=== PATIENT | female | born 1980 | race Caucasian/White ===

== ENCOUNTER 2018-05-04 11:16 | Observation (INO) ==
--- NOTE | 2018-05-05 00:35 | P.HPIM ---
History of Present Illness Service: [facility] Primary Care Physician: No Primary Care Physician Chief Complaint: nausea History of Present Illness: 37 y/o female with no medical history presented to the ED to the with complaints of vomiting and diarrhea today. Patient states she has been vomiting since this morning with one episode of diarrhea. Upon examination she is coughing and vomiting after. She states she has been having fevers and chills at home, unknown temperature. Denies any chest pain, or sob. Review of Systems All other systems reviewed negative except as stated in [facility] PMF[facility] - History History Provided By: Patient - Medical History Medical History: Medical History (Last Reviewed 05/05/18 @ 01:19 by DEBBY Chavarria) Patient denies medical problems - Surgical History Surgical History: Surgical History (Last Reviewed 05/05/18 @ 01:19 by DEBBY Chavarria) Hx of section Hx of tubal ligation - Social History I have reviewed the patient's Social History: Yes - Tobacco History Second Hand Smoke Exposure: Yes Tobacco Use In Past 30 Days: Yes Smoking Status: Current every day smoker Tobacco Type: Cigarettes Packs Per Day: 0.5 - Alcohol History How Often Do You Have a Drink Containing Alcohol: Never - Substance Use History Substance History: Active Abuse Medications and Allergies Allergies Allergy/AdvReac Type Severity Reaction Status Date / Time No Known Allergies Allergy Verified 05/04/18 12:11 Home Medications Medication Instructions Recorded Confirmed Type No Known Home Medications 05/04/18 05/04/18 History Exam Vital signs: Intake & Output 05/04/18 05/04/18 05/05/18 06:59 18:59 06:59 Weight 95.9 kg Other: Date of Last Bowel Movement 05/04/18 Weight On Admission 95.9 kg Narrative: GENERAL: This is a well-nourished, well-developed patient, in no apparent distress. CARDIOVASCULAR: Regular rate and rhythm without murmurs, gallops, or rubs. RESPIRATORY: Clear to auscultation. Breath sounds equal bilaterally. No wheezes , rales, or rhonchi. GASTROINTESTINAL: Abdomen soft, non-tender, nondistended. Normal active bowel sounds MUSCULOSKELETAL: Extremities without clubbing, cyanosis, or edema. NEURO: Alert & Oriented x4 to person, place, time, situation. Moves all ext x4 Caprini VTE Risk Assessment Caprini VTE Risk Assessment: No/Low Risk (score <= 1) Caprini Risk Assessment Model: Point Value = 1 Point Value = 2 Point Value = 3 Point Value = 5 Age 41-60 Minor surgery BMI > 25 kg/m2 Swollen legs Varicose veins or History of unexplained or recurrent spontaneous Oral contraceptives or hormone replacement Sepsis (< 1 month) Serious lung disease, including pneumonia (< 1 month) Abnormal pulmonary function Acute myocardial infarction Congestive heart failure (< 1 month) History of inflammatory bowel disease Medical patient at bed rest Age 61-74 Arthroscopic surgery Major open surgery (> 45 min) Laparoscopic surgery (> 45 min) Malignancy Confined to bed (> 72 hours) Immobilizing plaster cast Central venous access Age >= 75 History of VTE Family history of VTE Factor V Leiden Prothrombin [id number] Lupus anticoagulant Anticardiolipin antibodies Elevated serum homocysteine Heparin-induced thrombocytopenia Other congenital or acquired thrombophilia Stroke (< 1 month) Elective arthroplasty Hip, pelvis, or leg fracture Acute spinal cord injury (< 1 month) Prophylaxis Regimen: Total Risk Factor Score Risk Level Prophylaxis Regimen 0-1 Low Early ambulation 2 Moderate Order ONE of the following: *Sequential Compression Device (SCD) *Heparin 5000 units SQ BID 3-4 Higher Order ONE of the following medications: *Heparin 5000 units SQ TID *Enoxaparin/Lovenox 40 mg SQ daily (WT < 150 kg, CrCl > 30 mL/min) *Enoxaparin/Lovenox 30 mg SQ daily (WT < 150 kg, CrCl > 10-29 mL/min) *Enoxaparin/Lovenox 30 mg SQ BID (WT < 150 kg, CrCl > 30 mL/min) AND/OR *Sequential Compression Device (SCD) 5 or more Highest Order ONE of the following medications: *Heparin 5000 units SQ TID (Preferred with Epidurals) *Enoxaparin/Lovenox 40 mg SQ daily (WT < 150 kg, CrCl > 30 mL/min) *Enoxaparin/Lovenox 30 mg SQ daily (WT < 150 kg, CrCl > 10-29 mL/min) *Enoxaparin/Lovenox 30 mg SQ BID (WT < 150 kg, CrCl > 30 mL/min) AND *Sequential Compression Device (SCD) Assessment and Plan - Plan Intractable Nausea and vomiting Abdominal CT no acute abnormalities a Small amount of fluid within the right hemipelvis without acute abnormality otherwise and Tiny bilateral nonobstructing renal calculi. Gallbladder US unremarkable -HIDA scan ordered -IVF, NPO -Reglan IV for N/V Leukocytosis, wbc 15, likely reactive -chest xray ordered -Trend CBC DVT prophylaxis: SCDs Discussed Condition With: Patient and RN
[2018-05-05] MEDS: Sod Chloride 0.9% Inj 1,000 ML IV.CONT SCH ×3 (03:23→20:10)
--- NOTE | 2018-05-05 06:24 | XR ---
EXAM DATE: 05/05/2018 12:00 AM EDT AGE/SEX: 37 years / Female INDICATIONS: Short of breath, epigastric and abdominal pain, vomiting, evaluate infiltrate CLINICAL DATA: This is the patient's subsequent encounter. Patient reports that signs and symptoms h ave been present for 2 days and indicates a pain score of Nonresponsive. MEDICAL/SURGICAL HISTORY: . vomiting section. Tubal ligation. COMPARISON: . FINDINGS: Portable AP view of the chest demonstrates a normal-sized cardiac silhouette. No effusion, consolidat ion, or pneumothorax is identified. The bones and soft tissues demonstrate no acute finding. CONCLUSION: No acute cardiopulmonary abnormality is identified. Electronically signed by: Bandar Mcdaniels MD 05/05/2018 6:22 AM EDT
--- NOTE | 2018-05-05 09:01 | P.PN ---
Subjective Interval history: This is a pleasant 37 y/o female with complaint of vomit and diarrhea, stable in her bedroom no nausea or vomit started on liquid diet, status post HIDA scan, no findings of acute cholecystitis, gallbladder identified at 20 minutes No significant gallbladder response to IV CCK administration. probable chronic cholecystitis. Physical Exam Vital signs: Vital Signs 05/05/18 00:00 05/05/18 08:00 Temperature 97.6 F 98.8 F Pulse Rate 78 72 Respiratory Rate 17 17 Blood Pressure 129/83 161/81 H Pulse Oximetry 92 L 93 L Intake & Output 05/04/18 05/05/18 05/05/18 18:59 06:59 18:59 Intake Total 50 / 50 Balance 50 / 50 Weight 94.5 kg Intake: Oral 50 / 50 Other: # Voids 1 Date of Last Bowel Movement 05/04/18 Weight On Admission 95.9 kg Narrative: GENERAL: Obese patient, well-developed patient, in no apparent distress. CARDIOVASCULAR: Regular rate and rhythm without murmurs, gallops, or rubs. RESPIRATORY: Clear to auscultation. Breath sounds equal bilaterally. No wheezes , rales, or rhonchi. GASTROINTESTINAL: Abdomen soft, non-tender, nondistended. Normal active bowel sounds MUSCULOSKELETAL: Extremities without clubbing, cyanosis, or edema. NEURO: Alert & Oriented x4 to person, place, time, situation. Moves all ext x4 Results - Labs CBC & Chem 7: 05/05/18 09:34 05/05/18 09:34 - Imaging Impressions Chest X-Ray 05/05/18 00:00 CONCLUSION: No acute cardiopulmonary abnormality is identified. Assessment and Plan - Plan Intractable Nausea and vomiting Abdominal CT no acute abnormalities a Small amount of fluid within the right hemipelvis without acute abnormality otherwise and Tiny bilateral nonobstructing renal calculi. Gallbladder US unremarkable -HIDA no findings of acute cholecystitis, gallbladder identified at 20 minutes No significant gallbladder response to IV CCK administration. probable chronic cholecystitis. Started by Liquid diet. Leukocytosis, wbc 15, worsened to 18.3, asked for urinalysis and the chest X ray was negative for pathology, Neutrophils 84. will start on Zosyn, Empiric management blood cultures performed now. DVT prophylaxis: SCDs Code Status: Full code. Discussed Condition With: patient and Nurse Miss Tsering Discharge Planning: Expected in one to two days.
[2018-05-05 10:05] LABS: Hemoglobin 13.6 gm/dL (11.6-15.3); Mean Corpuscular HGB Conc 33.2 % (32.0-36.0); Mean Corpuscular Hemoglobin 28.5 pg (27.0-34.0); Mean Corpuscular Volume 85.8 fL (80.0-100.0); Platelet Count 203 th/mm3 (150-450); Red Blood Count 4.78 mil/mm3 (4.00-5.30); Red Cell Distribution Width 15.8 % (11.6-17.2); White Blood Count 18.3 th/mm3 (4.0-11.0)
[2018-05-05 10:16] LABS: Anion Gap 9 meq/L (5-15); Blood Urea Nitrogen 10 mg/dL (7-18); Calcium 9.2 mg/dL (8.5-10.1); Chloride 105 meq/L (98-107); Glomerular Filtration Rate Greater Than 89 mL/min (>89); Glucose,Random 123 mg/dL (74-106); Potassium 3.3 meq/L (3.5-5.1); Sodium 139 meq/L (136-145)
[2018-05-05] MEDS ORDERED: Sincalide Inj 5 MCG Vial ONE (11:11)
--- NOTE | 2018-05-05 12:28 | NM ---
EXAM DATE: 05/05/2018 9:56 AM EDT AGE/SEX: 37 years / Female INDICATIONS: Vomiting. CLINICAL DATA: This is the patient's initial encounter. Patient reports that signs and symptoms have been present for 1 day and indicates a pain score of 3/10. MEDICAL/SURGICAL HISTORY: None. Tubal ligation. section. COMPARISON: No prior exams available for comparison. DOSE: 4.1 mCi Tc-99m mebrofenin i.v. Medication: 1.9 mcg Cholecystokinin IV No symptomatic response Cholecystokinin was administered by slow infusion over 8 minutes beginning at 60 minutes. minutes. TECHNIQUE: Following the intravenous administration of radiotracer, dynamic sequential images were pe rformed with continuous acquisition. Time-activity curves were generated. FINDINGS: Hepatic Kinetics: There is prompt uptake of radiotracer in the liver. No focal defects are seen. Ther e is normal rate of washout from the hepatic parenchyma. Biliary Clearance: Activity is first seen in the extrahepatic biliary system at 65 minutes. There is normal excretion into the small bowel. Gallbladder: Activity is first seen in the gallbladder at 20 minutes. Post-CCK: After CCK administration, there is no significant emptying of the gallbladder common bile d uct kinetics are normal and there is no evidence of biliary obstruction. No symptomatic response aft er cholecystokinin infusion. Biliary-Enteric Reflux: None observed. CONCLUSION: 1. No findings of an acute cholecystitis. Gallbladder is identified at 20 minutes. 2. No significant gallbladder response to IV CCK administration. In the appropriate clinical setting , findings could represent a chronic cholecystitis. Electronically signed by: Jarte Mtz MD 05/05/2018 12:26 PM EDT
[2018-05-05] MEDS ORDERED: cefTRIAXone Inj 1,000 MG Vial IM SCH (16:00)
[2018-05-05] MEDS ORDERED: Potassium Chloride 25 MEQ Effervescent Tablet PO ONE ×2 (16:00→18:00)
[2018-05-05] MEDS: Pantoprazole Inj 40 MG Vial IV.PUSH SCH (16:50)
[2018-05-05] MEDS: Sucralfate 1 GM Tablet PO SCH ×2 (16:50→20:09)
[2018-05-05] MEDS: Piperacil/Tazo 4.5 GM Premix 4.5 GM/100 ML BAG IV.SIG SCH ×2 (17:04→23:36)
[2018-05-06] MEDS: Piperacil/Tazo 4.5 GM Premix 4.5 GM/100 ML BAG IV.SIG SCH ×5 (04:29→23:17)
[2018-05-06] MEDS: Sod Chloride 0.9% Inj 1,000 ML IV.CONT SCH ×4 (06:24→21:03)
[2018-05-06] MEDS: Sucralfate 1 GM Tablet PO SCH ×5 (08:38→21:00)
[2018-05-06] MEDS: Morphine Sulfate Inj 2 MG/ML Vial IV.PUSH PRN ×3 (09:52→21:01)
[2018-05-06 10:05] LABS: Hematocrit 39.7 % (35.0-46.0); Hemoglobin 13.4 gm/dL (11.6-15.3); Mean Corpuscular HGB Conc 33.8 % (32.0-36.0); Mean Corpuscular Hemoglobin 28.7 pg (27.0-34.0); Mean Platelet Volume 10.8 fL (7.0-11.0); Platelet Count 181 th/mm3 (150-450); Red Blood Count 4.67 mil/mm3 (4.00-5.30); Red Cell Distribution Width 15.5 % (11.6-17.2); White Blood Count 13.4 th/mm3 (4.0-11.0)
[2018-05-06 10:26] LABS: Calcium 8.4 mg/dL (8.5-10.1); Carbon Dioxide 26.7 meq/L (21.0-32.0); Potassium 3.2 meq/L (3.5-5.1)
--- NOTE | 2018-05-06 11:37 | P.PN ---
Subjective Interval history: This is a pleasant 37 y/o female with complaint of vomit and diarrhea, stable in her bedroom no nausea or vomit started on liquid diet, status post HIDA scan, no findings of acute cholecystitis, gallbladder identified at 20 minutes No significant gallbladder response to IV CCK administration. probable chronic cholecystitis. 05/06: Stable in his bedroom, discussed with nurse Miss Cagle the patient is nauseated, vomiting and with abdominal pain, continue on PPIs and Carafate, asked for GI specialist consult, may need General Surgery consult. Physical Exam Vital signs: Vital Signs 05/05/18 15:58 05/05/18 20:00 05/06/18 00:00 Temperature 98.9 F 99.7 F H 98.7 F Pulse Rate 83 88 86 Respiratory Rate 18 17 17 Blood Pressure 160/80 H 124/76 120/69 Pulse Oximetry 94 L 93 L 92 L 05/06/18 08:00 Temperature 97.8 F Pulse Rate 70 Respiratory Rate 17 Blood Pressure 166/74 H Pulse Oximetry 93 L Intake & Output 05/05/18 05/06/18 05/06/18 18:59 06:59 18:59 Intake Total 100 / 100 800 / 800 Balance 100 / 100 800 / 800 Weight 94.5 kg Intake: IV 100 / 100 200 / 200 Zosyn 4.5 GM Premix 4.5 gm In 100 / 100 200 / 200 100 ml @ 200 mls/hr IV.SIG Q6H RUFINA Rx#:[id number] Oral 600 / 600 Other: # Voids 3 Date of Last Bowel Movement 05/04/18 Narrative: GENERAL: Obese patient, well-developed patient, in no apparent distress. CARDIOVASCULAR: Regular rate and rhythm without murmurs, gallops, or rubs. RESPIRATORY: Clear to auscultation. Breath sounds equal bilaterally. No wheezes , rales, or rhonchi. GASTROINTESTINAL: Abdomen soft, today with generalized tenderness but is worse on epigastric area and RUQ. MUSCULOSKELETAL: Extremities without clubbing, cyanosis, or edema. NEURO: Alert & Oriented x4 to person, place, time, situation. Moves all ext x4 Results - Labs CBC & Chem 7: 05/06/18 09:46 05/06/18 09:46 Laboratory Results - last 24 hr 05/06/18 05/06/18 09:46 09:46 WBC 13.4 H RBC 4.67 Hgb 13.4 Hct 39.7 MCV 85.0 MCH 28.7 MCHC 33.8 RDW 15.5 Plt Count 181 MPV 10.8 Sodium 143 Potassium 3.2 L Chloride 105 Carbon Dioxide 26.7 Anion Gap 11 BUN 11 Creatinine 0.85 Estimated GFR 74 L Random Glucose 110 H Calcium 8.4 L D Microbiology 05/05/18 16:25 Blood - Peripheral Aerobic Blood Culture - Preliminary No growth in 1 day 05/05/18 16:25 Blood - Peripheral Anaerobic Blood Culture - Preliminary No growth in 1 day 05/05/18 16:20 Blood - Peripheral Aerobic Blood Culture - Preliminary No growth in 1 day 05/05/18 16:20 Blood - Peripheral Anaerobic Blood Culture - Preliminary No growth in 1 day - Imaging Impressions Bile Acid Absorption NM 05/05/18 00:00 CONCLUSION: 1. No findings of an acute cholecystitis. Gallbladder is identified at 20 minutes. 2. No significant gallbladder response to IV CCK administration. In the appropriate clinical setting, findings could represent a chronic cholecystitis. Assessment and Plan - Plan Intractable Nausea and vomiting Abdominal CT no acute abnormalities a Small amount of fluid within the right hemipelvis without acute abnormality otherwise and Tiny bilateral nonobstructing renal calculi. Gallbladder US unremarkable -HIDA no findings of acute cholecystitis, gallbladder identified at 20 minutes No significant gallbladder response to IV CCK administration. probable chronic cholecystitis. patient today with Nausea and vomit, may be related to Chronic Cholecystitis, asked for GI specialist consult, and may need General vendor management specialist consult. Leukocytosis, wbc 15, worsened to 18.3, asked for urinalysis and the chest X ray was negative for pathology, Neutrophils 84. will start on Zosyn, Empiric management blood cultures performed now. WBC improving to 13.4 Hypokalemia today 3.2 giving potassium replacement and following. DVT prophylaxis: SCDs Code Status: Full Code. Discussed Condition With: Patient and Nurse Miss Cagle. Discharge Planning: Once cleared by specialists.
[2018-05-06] MEDS: Potassium Chlor 20 mEq Premix 20 MEQ/100 ML PIGGYBACK IV.SIG SCH ×2 (12:04→14:41)
--- NOTE | 2018-05-06 12:49 | P.CONGI ---
History of Present Illness Consult date: 05/06/18 Consult reason: Abdominal pain with nausea and vomiting Chief complaint: Intractable Vomiting History of Present Illness: This patient is a 37-year-old female that denies any significant medical history. She presented to the emergency room on 05/04/2018 with report of vomiting and one episode of diarrhea. She states that she has been having epigastric pain that radiates across her upper abdomen and through to her back. Symptom onset was yesterday. Patient describes the pain as a dull ache and sharp. There are no aggravating or alleviating factors. Of note, patient states a few weeks ago she would have pain after heavy meals or meals eaten late at night and adjusted her habits to relieve same. Patient reports associated nausea with vomiting. She states emesis was clear to light bile colored. Denies any blood noted in emesis. HIDA scan performed on 05/05/2018 revealed the following- Gallbladder: Activity is first seen in the gallbladder at 20 minutes. Post-CCK: After CCK administration, there is no significant emptying of the gallbladder common bile duct kinetics are normal and there is no evidence of biliary obstruction. No symptomatic response after cholecystokinin infusion. Biliary- Enteric Reflux: None observed. No findings of an acute cholecystitis. Gallbladder is identified at 20 minutes. No significant gallbladder response to IV CCK administration. In the appropriate clinical setting, findings could represent a chronic cholecystitis. 05/06/2018 WBC 13.4 hemoglobin 13.4 hematocrit 39.7. Considering noted results of HIDA scan, will order general surgery consult. <Almita Rojas - Last Filed: 05/06/18 12:33> Review of Systems All other systems reviewed negative except as stated in HPI <Almita Rojas - Last Filed: 05/06/18 12:33> PMFSH - History History Provided By: Patient - Medical History Medical History: Medical History (Last Reviewed 05/05/18 @ 01:19 by DEBBY Chavarria) Patient denies medical problems - Surgical History Surgical History: Surgical History (Last Reviewed 05/05/18 @ 01:19 by DEBBY Chavarria) Hx of section Hx of tubal ligation - Tobacco History Second Hand Smoke Exposure: Yes Tobacco Use In Past 30 Days: Yes Smoking Status: Current every day smoker Tobacco Type: Cigarettes Packs Per Day: 0.5 - Alcohol History How Often Do You Have a Drink Containing Alcohol: Never - Substance Use History Substance History: Active Abuse <Almita Rojas - Last Filed: 05/06/18 12:33> - Medical History Medical History: Medical History (Last Reviewed 05/05/18 @ 01:19 by DEBBY Chavarria) Patient denies medical problems - Surgical History Surgical History: Surgical History (Last Reviewed 05/05/18 @ 01:19 by DEBBY Chavarria) Hx of section Hx of tubal ligation <Howard Torres - Last Filed: 05/06/18 13:29> Medications and Allergies Active Medications: Active Medications Sodium Chloride (Ns Inj) 1,000 mls @ 100 mls/hr IV.CONT .Q10H [facility] Last Admin: 05/06/18 10:00 Dose: 100 mls/hr Piperacillin/Tazobactam/Dextrose (Zosyn 4.5 Gm Premix) 4.5 gm in 100 mls @ 200 mls/hr IV.SIG Q6H [facility] Last Admin: 05/06/18 11:49 Dose: Not Given Potassium Chloride (Kcl 20 Meq Premix Inj) 20 meq in 100 mls @ 50 mls/hr IV.SIG Q2H [facility] Stop: 05/06/18 15:59 Last Admin: 05/06/18 12:04 Dose: 50 mls/hr Metoclopramide HCl (Reglan Inj) 5 mg IV.PUSH Q6HR PRN; Protocol PRN Reason: NAUSEA OR VOMITING Last Admin: 05/06/18 05:24 Dose: 5 mg Morphine Sulfate (Morphine Inj) 2 mg IV.PUSH Q3H PRN PRN Reason: PAIN SCALE 6 TO 10 Last Admin: 05/06/18 09:52 Dose: 2 mg Ondansetron HCl (Zofran Inj) 4 mg IV.PUSH Q4H PRN PRN Reason: NAUSEA OR VOMITING Last Admin: 05/06/18 09:52 Dose: 4 mg Pantoprazole Sodium (Protonix Inj) 40 mg IV.PUSH Q24H [facility] Last Admin: 05/05/18 16:50 Dose: 40 mg Sucralfate (Carafate) 1 gm PO ACHS [facility] Last Admin: 05/06/18 11:50 Dose: Not Given <Almita Rojas - Last Filed: 05/06/18 12:33> Active Medications: Active Medications Sodium Chloride (Ns Inj) 1,000 mls @ 100 mls/hr IV.CONT .Q10H [facility] Last Admin: 05/06/18 10:00 Dose: 100 mls/hr Piperacillin/Tazobactam/Dextrose (Zosyn 4.5 Gm Premix) 4.5 gm in 100 mls @ 200 mls/hr IV.SIG Q6H [facility] Last Admin: 05/06/18 11:49 Dose: Not Given Potassium Chloride (Kcl 20 Meq Premix Inj) 20 meq in 100 mls @ 50 mls/hr IV.SIG Q2H [facility] Stop: 05/06/18 15:59 Last Admin: 05/06/18 12:04 Dose: 50 mls/hr Metoclopramide HCl (Reglan Inj) 5 mg IV.PUSH Q6HR PRN; Protocol PRN Reason: NAUSEA OR VOMITING Last Admin: 05/06/18 05:24 Dose: 5 mg Morphine Sulfate (Morphine Inj) 2 mg IV.PUSH Q3H PRN PRN Reason: PAIN SCALE 6 TO 10 Last Admin: 05/06/18 09:52 Dose: 2 mg Ondansetron HCl (Zofran Inj) 4 mg IV.PUSH Q4H PRN PRN Reason: NAUSEA OR VOMITING Last Admin: 05/06/18 09:52 Dose: 4 mg Pantoprazole Sodium (Protonix Inj) 40 mg IV.PUSH Q24H [facility] Last Admin: 05/05/18 16:50 Dose: 40 mg Sucralfate (Carafate) 1 gm PO ACHS [facility] Last Admin: 05/06/18 11:50 Dose: Not Given <Howard Torres - Last Filed: 05/06/18 13:29> Allergies Allergy/AdvReac Type Severity Reaction Status Date / Time No Known Allergies Allergy Verified 05/04/18 12:11 Home Medications Medication Instructions Recorded Confirmed Type No Known Home Medications 05/04/18 05/04/18 History Exam Vital signs: Vital Signs 05/05/18 15:58 05/05/18 20:00 05/06/18 00:00 Temperature 98.9 F 99.7 F H 98.7 F Pulse Rate 83 88 86 Respiratory Rate 18 17 17 Blood Pressure 160/80 H 124/76 120/69 Pulse Oximetry 94 L 93 L 92 L 05/06/18 08:00 Temperature 97.8 F Pulse Rate 70 Respiratory Rate 17 Blood Pressure 166/74 H Pulse Oximetry 93 L Intake & Output 05/05/18 05/06/18 05/06/18 18:59 06:59 18:59 Intake Total 100 / 100 800 / 800 100 / 100 Balance 100 / 100 800 / 800 100 / 100 Weight 94.5 kg Intake: IV 100 / 100 200 / 200 100 / 100 Zosyn 4.5 GM Premix 4.5 gm In 100 / 100 200 / 200 100 / 100 100 ml @ 200 mls/hr IV.SIG Q6H [facility] Rx#:[id number] Oral 600 / 600 Other: # Voids 3 Date of Last Bowel Movement 05/04/18 05/04/18 - Constitutional mild distress - Routine HEENT Exam Head: Present: normocephalic - Routine Respiratory Exam Present: CTA bilaterally. Absent: accessory muscle use - Routine Cardiovascular Exam Present: RRR - Routine Abdominal Exam Present: soft, normoactive bowel sounds, tenderness, guarding. Absent: distended, firm - Routine Skin Exam Present: dry, warm. Absent: jaundice - Routine Neurological Exam Present: alert, oriented X3 <Rojas,Almita - Last Filed: 05/06/18 12:33> Vital signs: Vital Signs 05/05/18 15:58 05/05/18 20:00 05/06/18 00:00 Temperature 98.9 F 99.7 F H 98.7 F Pulse Rate 83 88 86 Respiratory Rate 18 17 17 Blood Pressure 160/80 H 124/76 120/69 Pulse Oximetry 94 L 93 L 92 L 05/06/18 08:00 05/06/18 12:00 Temperature 97.8 F 97.5 F L Pulse Rate 70 54 L Respiratory Rate 17 18 Blood Pressure 166/74 H 186/88 H Pulse Oximetry 93 L 96 Intake & Output 05/05/18 05/06/18 05/06/18 18:59 06:59 18:59 Intake Total 100 / 100 800 / 800 100 / 100 Balance 100 / 100 800 / 800 100 / 100 Weight 94.5 kg Intake: IV 100 / 100 200 / 200 100 / 100 Zosyn 4.5 GM Premix 4.5 gm In 100 / 100 200 / 200 100 / 100 100 ml @ 200 mls/hr IV.SIG Q6H [facility] Rx#:[id number] Oral 600 / 600 Other: # Voids 3 Date of Last Bowel Movement 05/04/18 05/04/18 <Howard Torres - Last Filed: 05/06/18 13:29> Results - Labs CBC & Chem 7: 05/06/18 09:46 05/06/18 09:46 Labs: Laboratory Results - last 24 hr 05/06/18 05/06/18 09:46 09:46 WBC 13.4 H RBC 4.67 Hgb 13.4 Hct 39.7 MCV 85.0 MCH 28.7 MCHC 33.8 RDW 15.5 Plt Count 181 MPV 10.8 Sodium 143 Potassium 3.2 L Chloride 105 Carbon Dioxide 26.7 Anion Gap 11 BUN 11 Creatinine 0.85 Estimated GFR 74 L Random Glucose 110 H Calcium 8.4 L D <Almita Rojas - Last Filed: 05/06/18 12:33> - Labs CBC & Chem 7: 05/06/18 09:46 05/06/18 09:46 Labs: Laboratory Results - last 24 hr 05/06/18 05/06/18 09:46 09:46 WBC 13.4 H RBC 4.67 Hgb 13.4 Hct 39.7 MCV 85.0 MCH 28.7 MCHC 33.8 RDW 15.5 Plt Count 181 MPV 10.8 Sodium 143 Potassium 3.2 L Chloride 105 Carbon Dioxide 26.7 Anion Gap 11 BUN 11 Creatinine 0.85 Estimated GFR 74 L Random Glucose 110 H Calcium 8.4 L D <Howard Torres - Last Filed: 05/06/18 13:29> Assessment and Plan (1) Abdominal pain Status: Acute Code(s): R10.9 - Unspecified abdominal pain (2) Nausea & vomiting Status: Acute Code(s): R11.2 - Nausea with vomiting, unspecified - Plan This patient is a 37-year-old female that denies any significant medical history. She presented to the emergency room on 05/04/2018 with report of vomiting and one episode of diarrhea. She states that she has been having epigastric pain that radiates across her upper abdomen and through to her back. Symptom onset was yesterday. Patient describes the pain as a dull ache and sharp. There are no aggravating or alleviating factors. Of note, patient states a few weeks ago she would have pain after heavy meals or meals eaten late at night and adjusted her habits to relieve same. Patient reports associated nausea with vomiting. She states emesis was clear to light bile colored. Denies any blood noted in emesis. HIDA scan performed on 05/05/2018 revealed the following- Gallbladder: Activity is first seen in the gallbladder at 20 minutes. Post-CCK: After CCK administration, there is no significant emptying of the gallbladder common bile duct kinetics are normal and there is no evidence of biliary obstruction. No symptomatic response after cholecystokinin infusion. Biliary- Enteric Reflux: None observed. No findings of an acute cholecystitis. Gallbladder is identified at 20 minutes. No significant gallbladder response to IV CCK administration. In the appropriate clinical setting, findings could represent a chronic cholecystitis. 05/06/2018 WBC 13.4 hemoglobin 13.4 hematocrit 39.7. Considering noted results of HIDA scan, will order general surgery consult. Abdominal pain with nausea and vomiting Patient reporting pain epigastric area radiates across upper abdomen and through to upper back associated with nausea and vomiting since early this morning and she reports it woke her up from sleep. HIDA scan and lab results as noted above. In this consideration, will order general surgery consult. Plan -Liquid diet-possible n.p.o. after midnight -PPI -Reglan -Analgesic and antiemetic as per attending -General surgery consult for input -Supportive care -Further recommendations to follow This patient has been seen by myself and Dr. Torres and this note is written on his behalf - Attending Attestation Dr. Torres <Almita Rojas - Last Filed: 05/06/18 12:33> (1) Abdominal pain Status: Acute Code(s): R10.9 - Unspecified abdominal pain (2) Nausea & vomiting Status: Acute Code(s): R11.2 - Nausea with vomiting, unspecified - Plan Seen and examined with [employer], GS consult for cholecystitis. Possible egd depending upon clinical course and surgery evaluation. Discussed with pt. Thank you <Howard Torres - Last Filed: 05/06/18 13:29>
[2018-05-06] MEDS: Pantoprazole Inj 40 MG Vial IV.PUSH SCH (16:19)
--- NOTE | 2018-05-06 21:47 | P.CONGS ---
[facility] Gen Surgery Consult Note Consult date: 05/06/18 Narrative: 37 yo F developed abdominal pain a few days ago in the epigastrium, radiating to the back and bilateral upper abdomen. She had an episode of diarrhea and multiple episodes of emesis, the first blood tinged. She had never had this type of pain. She does have a h/o reflux, occasionally quite severe and assoc with regurgitation and vomiting. She was seen in ED a few days ago and then admitted two days ago. CT a/p showed some fluid in right pelvis, and gallbladder u/s was normal. During this admission, HIDA showed patent cystic duct and minimal gallbladder emptying, possibly c/w chronic cholecytitis. PSH C section x 3. WBC 18 yesterday and 13 today. She felt better yesterday and ate but then today had emesis again. Review of Systems All other systems reviewed negative except as stated in [facility] - History History Provided By: Patient - Medical History Medical History: Medical History (Last Reviewed 05/05/18 @ 01:19 by DEBBY Chavarria) Patient denies medical problems - Surgical History Surgical History: Surgical History (Last Reviewed 05/05/18 @ 01:19 by DEBBY Chavarria) Hx of section Hx of tubal ligation - Tobacco History Second Hand Smoke Exposure: Yes Tobacco Use In Past 30 Days: Yes Smoking Status: Current every day smoker Tobacco Type: Cigarettes Packs Per Day: 0.5 - Alcohol History How Often Do You Have a Drink Containing Alcohol: Never - Substance Use History Substance History: Active Abuse Medications and Allergies Active Medications: Active Medications Sodium Chloride (Ns Inj) 1,000 mls @ 100 mls/hr IV.CONT .Q10H [facility] Last Admin: 05/06/18 21:03 Dose: 100 mls/hr Piperacillin/Tazobactam/Dextrose (Zosyn 4.5 Gm Premix) 4.5 gm in 100 mls @ 200 mls/hr IV.SIG Q6H [facility] Last Infusion: 05/06/18 17:00 Dose: Infused Metoclopramide HCl (Reglan Inj) 5 mg IV.PUSH Q6HR PRN; Protocol PRN Reason: NAUSEA OR VOMITING Last Admin: 05/06/18 21:01 Dose: 5 mg Morphine Sulfate (Morphine Inj) 2 mg IV.PUSH Q3H PRN PRN Reason: PAIN SCALE 6 TO 10 Last Admin: 05/06/18 21:01 Dose: 2 mg Ondansetron HCl (Zofran Inj) 4 mg IV.PUSH Q4H PRN PRN Reason: NAUSEA OR VOMITING Last Admin: 05/06/18 16:28 Dose: 4 mg Pantoprazole Sodium (Protonix Inj) 40 mg IV.PUSH Q24H [facility] Last Admin: 05/06/18 16:19 Dose: 40 mg Sucralfate (Carafate) 1 gm PO ACHS [facility] Last Admin: 05/06/18 21:00 Dose: 1 gm Allergies Allergy/AdvReac Type Severity Reaction Status Date / Time No Known Allergies Allergy Verified 05/04/18 12:11 Home Medications Medication Instructions Recorded Confirmed Type No Known Home Medications 05/04/18 05/04/18 History Exam Vital signs: Vital Signs 05/06/18 00:00 05/06/18 08:00 05/06/18 12:00 Temperature 98.7 F 97.8 F 97.5 F L Pulse Rate 86 70 54 L Respiratory Rate 17 17 18 Blood Pressure 120/69 166/74 H 186/88 H Pulse Oximetry 92 L 93 L 96 05/06/18 16:00 Temperature 98.4 F Pulse Rate 75 Respiratory Rate 18 Blood Pressure 131/84 Pulse Oximetry 95 Intake & Output 05/06/18 05/06/18 05/07/18 06:59 18:59 06:59 Intake Total 800 / 800 400 / 400 1000 / 1000 Balance 800 / 800 400 / 400 1000 / 1000 Weight 94.5 kg Intake: IV 200 / 200 400 / 400 1000 / 1000 NS Inj 1,000 ML @ 100 mls/hr IV 1000 / 1000 .CONT .Q10H [facility] Rx#:[id number] Zosyn 4.5 GM Premix 4.5 gm In 200 / 200 200 / 200 100 ml @ 200 mls/hr IV.SIG Q6H [facility] Rx#:[id number] KCl 20 mEq Premix Inj 20 meq In 200 / 200 100 ml @ 50 mls/hr IV.SIG Q2H [facility] Rx#:[id number] Oral 600 / 600 Other: # Voids 3 Date of Last Bowel Movement 05/04/18 Narrative: GENERAL: Awake and alert. No acute distress. Cooperative. HEAD: Normocephalic. Atraumatic. EYES: Pupils equal round and reactive to light bilaterally. No scleral icterus. ENT: Moist oral mucosa. NECK: Trachea midline. CHEST: Nonlabored breathing. No respiratory distress. CARDIOVASCULAR: Regular rate and rhythm. ABDOMEN: Mild epigastric ttp, mod-severe RUQ ttp EXTREMITIES: No cyanosis or edema. SKIN: Warm, dry, nonjaundiced. Results - Labs 05/06/18 09:46 10 09:46 Laboratory Results - last 24 hr 05/06/18 10 09:46 09:46 WBC 13.4 H RBC 4.67 Hgb 13.4 Hct 39.7 MCV 85.0 MCH 28.7 MCHC 33.8 RDW 15.5 Plt Count 181 MPV 10.8 Sodium 143 Potassium 3.2 L Chloride 105 Carbon Dioxide 26.7 Anion Gap 11 BUN 11 Creatinine 0.85 Estimated GFR 74 L Random Glucose 110 H Calcium 8.4 L D - Imaging Imaging: ITS Impressions Bile Acid Absorption NM 05/05/18 00:00 CONCLUSION: 1. No findings of an acute cholecystitis. Gallbladder is identified at 20 minutes. 2. No significant gallbladder response to IV CCK administration. In the appropriate clinical setting, findings could represent a chronic cholecystitis. Chest X-Ray 05/05/18 00:00 CONCLUSION: No acute cardiopulmonary abnormality is identified. CT scan - abdomen: report reviewed CT scan - pelvis: report reviewed US - abdomen: report reviewed Assessment and Plan - Assessment (1) Biliary dyskinesia Code(s): K82.8 - Other specified diseases of gallbladder Status: Acute (2) Abdominal pain Code(s): R10.9 - Unspecified abdominal pain Status: Acute (3) Nausea & vomiting Code(s): R11.2 - Nausea with vomiting, unspecified Status: Acute - Plan History sounds complatible with cholecystitis but imaging studies show only biliary dyskinesia and possible chronic cholecystitis. CHeck LFTs and lipase in am. EGD seems reasonable. If no improvement in symptoms over next couple of days will consider cholecystectomy.
[2018-05-07] MEDS: Piperacil/Tazo 4.5 GM Premix 4.5 GM/100 ML BAG IV.SIG SCH ×4 (05:38→22:53)
[2018-05-07] MEDS: Sod Chloride 0.9% Inj 1,000 ML IV.CONT SCH ×4 (05:38→18:30)
[2018-05-07 05:56] LABS: Mean Corpuscular HGB Conc 33.3 % (32.0-36.0); Mean Corpuscular Hemoglobin 28.7 pg (27.0-34.0); Mean Corpuscular Volume 86.2 fL (80.0-100.0); Mean Platelet Volume 11.2 fL (7.0-11.0); Platelet Count 135 th/mm3 (150-450); Red Blood Count 4.18 mil/mm3 (4.00-5.30); Red Cell Distribution Width 15.6 % (11.6-17.2); White Blood Count 7.3 th/mm3 (4.0-11.0)
[2018-05-07 06:25] LABS: Albumin 2.8 g/dL (3.4-5.0); Calcium 7.6 mg/dL (8.5-10.1); Carbon Dioxide 28.1 meq/L (21.0-32.0); Magnesium 1.6 mg/dL (1.5-2.5); Potassium 3.1 meq/L (3.5-5.1)
[2018-05-07 06:30] LABS: Phosphorus 3.1 mg/dL (2.5-4.9); Total Protein 5.6 g/dL (6.4-8.2)
[2018-05-07] MEDS: Sucralfate 1 GM Tablet PO SCH ×4 (08:29→20:53)
--- NOTE | 2018-05-07 10:57 | P.PN ---
Subjective Interval history: Follow-up for upper abdominal pain, nausea and vomiting. Patient is currently doing well. She reports improvement of her abdominal pain as well as nausea vomiting. Denies any chest pain, shortness of breath, fever or chills. Physical Exam Vital signs: Vital Signs 05/06/18 12:00 05/06/18 16:00 05/06/18 20:00 Temperature 97.5 F L 98.4 F 98.4 F Pulse Rate 54 L 75 51 L Respiratory Rate 18 18 20 Blood Pressure 186/88 H 131/84 138/76 Pulse Oximetry 96 95 95 05/07/18 00:00 05/07/18 08:00 Temperature 98.2 F 97.9 F Pulse Rate 70 67 Respiratory Rate 20 19 Blood Pressure 128/73 131/71 Pulse Oximetry 92 L 94 L Intake & Output 05/06/18 05/07/18 05/07/18 18:59 06:59 18:59 Intake Total 400 / 400 1700 / 1700 1000 / 1000 Balance 400 / 400 1700 / 1700 1000 / 1000 Weight 98.2 kg Intake: IV 400 / 400 1200 / 1200 1000 / 1000 NS Inj 1,000 ML @ 100 mls/hr IV 1000 / 1000 1000 / 1000 .CONT .Q10H [facility] Rx#:[id number] Zosyn 4.5 GM Premix 4.5 gm In 200 / 200 200 / 200 100 ml @ 200 mls/hr IV.SIG Q6H [facility] Rx#:[id number] KCl 20 mEq Premix Inj 20 meq In 200 / 200 100 ml @ 50 mls/hr IV.SIG Q2H [facility] Rx#:[id number] Oral 500 / 500 Other: # Voids 2 Date of Last Bowel Movement 05/04/18 05/04/18 Narrative: GENERAL: Alert, oriented x3, NAD. SKIN: Warm and dry. HEAD: Normocephalic. EYES: No scleral icterus. No injection or drainage. NECK: Supple, trachea midline. No JVD or lymphadenopathy. CARDIOVASCULAR: Regular rate and rhythm without murmurs, gallops, or rubs. RESPIRATORY: Breath sounds equal bilaterally. No accessory muscle use. GASTROINTESTINAL: Abdomen soft, mild tenderness on palpation, nondistended. MUSCULOSKELETAL: No cyanosis, or edema. BACK: Nontender without obvious deformity. No CVA tenderness. Results - Labs CBC & Chem 7: 05/07/18 04:06 05/07/18 04:06 Laboratory Results - last 24 hr 05/07/18 05/07/18 04:06 04:06 WBC 7.3 RBC 4.18 Hgb 12.0 Hct 36.0 MCV 86.2 MCH 28.7 MCHC 33.3 RDW 15.6 Plt Count 135 L MPV 11.2 H Sodium 145 Potassium 3.1 L Chloride 108 H Carbon Dioxide 28.1 Anion Gap 9 BUN 6 L Creatinine 0.86 Estimated GFR 73 L Random Glucose 81 Calcium 7.6 L D Phosphorus 3.1 Magnesium 1.6 Total Bilirubin 0.5 Direct Bilirubin 0.2 Indirect Bilirubin 0.3 AST 12 L ALT 18 Alkaline Phosphatase 65 Total Protein 5.6 L D Albumin 2.8 L Lipase 87 Microbiology 05/05/18 16:25 Blood - Peripheral Aerobic Blood Culture - Preliminary No growth in 1 day 05/05/18 16:25 Blood - Peripheral Anaerobic Blood Culture - Preliminary No growth in 1 day 05/05/18 16:20 Blood - Peripheral Aerobic Blood Culture - Preliminary No growth in 1 day 05/05/18 16:20 Blood - Peripheral Anaerobic Blood Culture - Preliminary No growth in 1 day Assessment and Plan - Plan 37 y/o female with no medical history presented to the ED to the with complaints of vomiting and diarrhea. Complaining of upper abdominal pain radiating to her back. GI and general surgery were consulted. Upper quadrant abdominal pain Possible cholecystitis -Continue Zosyn 4.5 g every 6 hours. -Appreciate general surgery and GI input. -Lipase level 87. -General surgery will re-evaluate for possible cholecystectomy. -Continue sucralfate 1 g p.o. before meals at bedtime. Continue Protonix Hypokalemia Hypomagnesemia -We will replace magnesium with IV magnesium sulfate. Replace potassium with oral potassium. Full code. Ambulation.
[2018-05-07] MEDS: Mag Sulf 1 gm/100 ml Premix 100 ML IV.SIG SCH ×2 (11:04→12:38)
[2018-05-07] MEDS: Morphine Sulfate Inj 2 MG/ML Vial IV.PUSH PRN ×4 (11:07→22:53)
--- NOTE | 2018-05-07 12:05 | P.PNGS ---
Subjective Interval history: Feels slightly better today. Would like to try more oral intake. WBC normalized. Physical Exam Vital signs: Vital Signs 05/06/18 16:00 05/06/18 20:00 05/07/18 00:00 Temperature 98.4 F 98.4 F 98.2 F Pulse Rate 75 51 L 70 Respiratory Rate 18 20 20 Blood Pressure 131/84 138/76 128/73 Pulse Oximetry 95 95 92 L 05/07/18 08:00 05/07/18 12:00 Temperature 97.9 F 97.6 F Pulse Rate 67 66 Respiratory Rate 19 19 Blood Pressure 131/71 162/81 H Pulse Oximetry 94 L 97 Intake & Output 05/06/18 05/07/18 05/07/18 18:59 06:59 18:59 Intake Total 400 / 400 1700 / 1700 1100 / 1100 Balance 400 / 400 1700 / 1700 1100 / 1100 Weight 98.2 kg Intake: IV 400 / 400 1200 / 1200 1100 / 1100 NS Inj 1,000 ML @ 100 mls/hr IV 1000 / 1000 1000 / 1000 .CONT .Q10H [facility] Rx#:[id number] Zosyn 4.5 GM Premix 4.5 gm In 200 / 200 200 / 200 100 / 100 100 ml @ 200 mls/hr IV.SIG Q6H [facility] Rx#:[id number] KCl 20 mEq Premix Inj 20 meq In 200 / 200 100 ml @ 50 mls/hr IV.SIG Q2H [facility] Rx#:[id number] Oral 500 / 500 Other: # Voids 2 Date of Last Bowel Movement 05/04/18 05/04/18 05/04/18 Narrative: NAD Abd: mild RUQ tenderness to deep palpation Results - Labs 05/07/18 04:06 05/07/18 04:06 Laboratory Results - last 24 hr 05/07/18 05/07/18 04:06 04:06 WBC 7.3 RBC 4.18 Hgb 12.0 Hct 36.0 MCV 86.2 MCH 28.7 MCHC 33.3 RDW 15.6 Plt Count 135 L MPV 11.2 H Sodium 145 Potassium 3.1 L Chloride 108 H Carbon Dioxide 28.1 Anion Gap 9 BUN 6 L Creatinine 0.86 Estimated GFR 73 L Random Glucose 81 Calcium 7.6 L D Phosphorus 3.1 Magnesium 1.6 Total Bilirubin 0.5 Direct Bilirubin 0.2 Indirect Bilirubin 0.3 AST 12 L ALT 18 Alkaline Phosphatase 65 Total Protein 5.6 L D Albumin 2.8 L Lipase 87 - Imaging Imaging: ITS Impressions Bile Acid Absorption NM 05/05/18 00:00 CONCLUSION: 1. No findings of an acute cholecystitis. Gallbladder is identified at 20 minutes. 2. No significant gallbladder response to IV CCK administration. In the appropriate clinical setting, findings could represent a chronic cholecystitis. Chest X-Ray 05/05/18 00:00 CONCLUSION: No acute cardiopulmonary abnormality is identified. Assessment and Plan - Assessment (1) Biliary dyskinesia Code(s): K82.8 - Other specified diseases of gallbladder Status: Acute (2) Abdominal pain Code(s): R10.9 - Unspecified abdominal pain Status: Acute (3) Nausea & vomiting Code(s): R11.2 - Nausea with vomiting, unspecified Status: Acute - Plan Slightly improved. LFTs/lipase nml. Try cardiac diet. EGD may be beneficial. If no improvement and no other findings will consider lap asiya early next week.
--- NOTE | 2018-05-07 16:01 | P.PNGI ---
Subjective Interval history: Pt is resting in bed, complaints of headache all day. She had some nausea and upper abd pain following lunch, but got relief with Reglan No vomiting <Jayson West - Last Filed: 05/07/18 15:53> Physical Exam Vital signs: Vital Signs 05/06/18 16:00 05/06/18 20:00 05/07/18 00:00 Temperature 98.4 F 98.4 F 98.2 F Pulse Rate 75 51 L 70 Respiratory Rate 18 20 20 Blood Pressure 131/84 138/76 128/73 Pulse Oximetry 95 95 92 L 05/07/18 08:00 05/07/18 12:00 Temperature 97.9 F 97.6 F Pulse Rate 67 66 Respiratory Rate 19 19 Blood Pressure 131/71 162/81 H Pulse Oximetry 94 L 97 Intake & Output 05/06/18 05/07/18 05/07/18 18:59 06:59 18:59 Intake Total 400 / 400 1700 / 1700 1300 / 1300 Balance 400 / 400 1700 / 1700 1300 / 1300 Weight 98.2 kg Intake: IV 400 / 400 1200 / 1200 1300 / 1300 NS Inj 1,000 ML @ 100 mls/hr IV 1000 / 1000 1000 / 1000 .CONT .Q10H RUFINA Rx#:[id number] Magnesium Sulfate 1 gm/D5W 100 200 / 200 ml Premix 100 ML @ 100 mls/hr IV.SIG Q1H RUFINA Rx#:[id number] Zosyn 4.5 GM Premix 4.5 gm In 200 / 200 200 / 200 100 / 100 100 ml @ 200 mls/hr IV.SIG Q6H RUFINA Rx#:[id number] KCl 20 mEq Premix Inj 20 meq In 200 / 200 100 ml @ 50 mls/hr IV.SIG Q2H RUFINA Rx#:[id number] Oral 500 / 500 Other: # Voids 2 Date of Last Bowel Movement 05/04/18 05/04/18 05/04/18 - Constitutional no acute distress - Routine HEENT Exam Head: Present: normocephalic - Routine Neck Exam Present: supple - Routine Respiratory Exam Present: CTA bilaterally - Routine Cardiovascular Exam Present: RRR - Routine Abdominal Exam Present: soft, normoactive bowel sounds, tenderness. Absent: distended - Routine Skin Exam Present: intact, dry - Routine Neurological Exam Present: alert, oriented X3 <Jayson West - Last Filed: 05/07/18 15:53> Vital signs: Vital Signs 05/07/18 00:00 05/07/18 08:00 05/07/18 12:00 Temperature 98.2 F 97.9 F 97.6 F Pulse Rate 70 67 66 Respiratory Rate 20 19 19 Blood Pressure 128/73 131/71 162/81 H Pulse Oximetry 92 L 94 L 97 05/07/18 16:00 05/07/18 20:00 Temperature 97.7 F 98.6 F Pulse Rate 60 63 Respiratory Rate 18 Blood Pressure 133/63 145/86 H Pulse Oximetry 96 18 L Intake & Output 05/07/18 05/07/18 05/08/18 06:59 18:59 06:59 Intake Total 1700 / 1700 2804 / 2804 Balance 1700 / 1700 2804 / 2804 Weight 98.2 kg Intake: IV 1200 / 1200 1400 / 1400 NS Inj 1,000 ML @ 100 mls/hr IV 1000 / 1000 1000 / 1000 .CONT .Q10H RUFINA Rx#:[id number] Magnesium Sulfate 1 gm/D5W 100 200 / 200 ml Premix 100 ML @ 100 mls/hr IV.SIG Q1H RUFINA Rx#:[id number] Zosyn 4.5 GM Premix 4.5 gm In 200 / 200 200 / 200 100 ml @ 200 mls/hr IV.SIG Q6H RUFINA Rx#:[id number] Oral 500 / 500 1404 / 1404 Other: # Voids 2 6 Date of Last Bowel Movement 05/04/18 05/04/18 <Sari Leo - Last Filed: 05/07/18 22:47> Results - Labs CBC & Chem 7: 05/07/18 04:06 05/07/18 04:06 Laboratory Results - last 24 hr 05/07/18 05/07/18 04:06 04:06 WBC 7.3 RBC 4.18 Hgb 12.0 Hct 36.0 MCV 86.2 MCH 28.7 MCHC 33.3 RDW 15.6 Plt Count 135 L MPV 11.2 H Sodium 145 Potassium 3.1 L Chloride 108 H Carbon Dioxide 28.1 Anion Gap 9 BUN 6 L Creatinine 0.86 Estimated GFR 73 L Random Glucose 81 Calcium 7.6 L D Phosphorus 3.1 Magnesium 1.6 Total Bilirubin 0.5 Direct Bilirubin 0.2 Indirect Bilirubin 0.3 AST 12 L ALT 18 Alkaline Phosphatase 65 Total Protein 5.6 L D Albumin 2.8 L Lipase 87 Microbiology 05/05/18 16:25 Blood - Peripheral Aerobic Blood Culture - Preliminary No growth in 2 days 05/05/18 16:25 Blood - Peripheral Anaerobic Blood Culture - Preliminary No growth in 2 days 05/05/18 16:20 Blood - Peripheral Aerobic Blood Culture - Preliminary No growth in 2 days 05/05/18 16:20 Blood - Peripheral Anaerobic Blood Culture - Preliminary No growth in 2 days <Jayson West - Last Filed: 05/07/18 15:53> - Labs CBC & Chem 7: 05/07/18 04:06 05/07/18 04:06 Laboratory Results - last 24 hr 05/07/18 05/07/18 04:06 04:06 WBC 7.3 RBC 4.18 Hgb 12.0 Hct 36.0 MCV 86.2 MCH 28.7 MCHC 33.3 RDW 15.6 Plt Count 135 L MPV 11.2 H Sodium 145 Potassium 3.1 L Chloride 108 H Carbon Dioxide 28.1 Anion Gap 9 BUN 6 L Creatinine 0.86 Estimated GFR 73 L Random Glucose 81 Calcium 7.6 L D Phosphorus 3.1 Magnesium 1.6 Total Bilirubin 0.5 Direct Bilirubin 0.2 Indirect Bilirubin 0.3 AST 12 L ALT 18 Alkaline Phosphatase 65 Total Protein 5.6 L D Albumin 2.8 L Lipase 87 Microbiology 05/05/18 16:25 Blood - Peripheral Aerobic Blood Culture - Preliminary No growth in 2 days 05/05/18 16:25 Blood - Peripheral Anaerobic Blood Culture - Preliminary No growth in 2 days 05/05/18 16:20 Blood - Peripheral Aerobic Blood Culture - Preliminary No growth in 2 days 05/05/18 16:20 Blood - Peripheral Anaerobic Blood Culture - Preliminary No growth in 2 days <Sari Leo - Last Filed: 05/07/18 22:47> Assessment and Plan (1) Abdominal pain Status: Acute Code(s): R10.9 - Unspecified abdominal pain (2) Nausea & vomiting Status: Acute Code(s): R11.2 - Nausea with vomiting, unspecified - Plan - Abdominal pain with nausea and vomiting- still with nausea and mild upper abd pain aggravated by PO intake. LFts wnl, lipase wnl - ?cholecystitis- HIDA scan performed on 05/05/2018 revealed the following- Gallbladder: Activity is first seen in the gallbladder at 20 minutes. Post-CCK: After CCK administration, there is no significant emptying of the gallbladder common bile duct kinetics are normal and there is no evidence of biliary obstruction. No symptomatic response after cholecystokinin infusion. Biliary- Enteric Reflux: None observed. No findings of an acute cholecystitis. Gallbladder is identified at 20 minutes. No significant gallbladder response to IV CCK administration. In the appropriate clinical setting, findings could represent a chronic cholecystitis. GS on the case - Leucocytosis- Resolved- Secondary to above, on Zosyn Plan: - Diet per GS - EGD on Wednesday - Cont Reglan - supportive care - GS on the case - Pt seen and examined by Dr. Leo and myself and this note is written on her behalf. <Jayson West - Last Filed: 05/07/18 15:53> (1) Abdominal pain Status: Acute Code(s): R10.9 - Unspecified abdominal pain (2) Nausea & vomiting Status: Acute Code(s): R11.2 - Nausea with vomiting, unspecified - Attending Attestation seen, examined agree with above <Sari Leo - Last Filed: 05/07/18 22:47>
[2018-05-07] MEDS: Pantoprazole Inj 40 MG Vial IV.PUSH SCH (17:04)
[2018-05-08] MEDS: Morphine Sulfate Inj 2 MG/ML Vial IV.PUSH PRN ×5 (02:54→20:43)
[2018-05-08] MEDS: Sod Chloride 0.9% Inj 1,000 ML IV.CONT SCH ×3 (04:30→22:20)
[2018-05-08] MEDS: Piperacil/Tazo 4.5 GM Premix 4.5 GM/100 ML BAG IV.SIG SCH ×4 (06:09→22:54)
[2018-05-08] MEDS: Sucralfate 1 GM Tablet PO SCH ×4 (09:43→20:36)
--- NOTE | 2018-05-08 12:28 | P.PN ---
Subjective Interval history: Follow-up for upper abdominal pain, nausea and vomiting. Patient had some nausea after breakfast today. But she did not throw up. No fever or chills. She continues to have epigastric and right-sided upper quadrant abdominal pain. Physical Exam Vital signs: Vital Signs 05/07/18 16:00 05/07/18 19:45 05/07/18 20:00 Temperature 97.7 F 98.6 F Pulse Rate 60 63 Respiratory Rate 18 18 Blood Pressure 133/63 145/86 H Pulse Oximetry 96 18 L 05/07/18 22:55 05/08/18 00:00 05/08/18 02:56 Temperature 98.6 F Pulse Rate 63 Respiratory Rate 17 16 17 Blood Pressure 138/73 Pulse Oximetry 96 05/08/18 06:19 05/08/18 08:00 05/08/18 12:00 Temperature 97.9 F 97.8 F Pulse Rate 51 L 52 L Respiratory Rate 17 17 17 Blood Pressure 142/82 H 140/86 Pulse Oximetry 97 98 Intake & Output 05/07/18 05/08/18 05/08/18 18:59 06:59 18:59 Intake Total 3804 / 3804 1200 / 1200 1000 / 1000 Balance 3804 / 3804 1200 / 1200 1000 / 1000 Weight 101 kg Intake: IV 2400 / 2400 1200 / 1200 1000 / 1000 NS Inj 1,000 ML @ 100 mls/hr IV 2000 / 2000 1000 / 1000 1000 / 1000 .CONT .Q10H RUFINA Rx#:[id number] Magnesium Sulfate 1 gm/D5W 100 200 / 200 ml Premix 100 ML @ 100 mls/hr IV.SIG Q1H RUFINA Rx#:[id number] Zosyn 4.5 GM Premix 4.5 gm In 200 / 200 200 / 200 100 ml @ 200 mls/hr IV.SIG Q6H RUFINA Rx#:[id number] Oral 1404 / 1404 Other: # Voids 6 Date of Last Bowel Movement 05/04/18 Narrative: GENERAL: Alert, oriented x3, NAD. SKIN: Warm and dry. HEAD: Normocephalic. EYES: No scleral icterus. No injection or drainage. NECK: Supple, trachea midline. No JVD or lymphadenopathy. CARDIOVASCULAR: Regular rate and rhythm without murmurs, gallops, or rubs. RESPIRATORY: Breath sounds equal bilaterally. No accessory muscle use. GASTROINTESTINAL: Abdomen soft, mild tenderness in the epigastric and right upper quadrant, nondistended. MUSCULOSKELETAL: No cyanosis, or edema. BACK: Nontender without obvious deformity. No CVA tenderness. Results - Labs CBC & Chem 7: 05/07/18 04:06 05/07/18 04:06 Microbiology 05/05/18 16:25 Blood - Peripheral Aerobic Blood Culture - Preliminary No growth in 3 days 05/05/18 16:25 Blood - Peripheral Anaerobic Blood Culture - Preliminary No growth in 3 days 05/05/18 16:20 Blood - Peripheral Aerobic Blood Culture - Preliminary No growth in 3 days 05/05/18 16:20 Blood - Peripheral Anaerobic Blood Culture - Preliminary No growth in 3 days Assessment and Plan - Plan 37 y/o female with no medical history presented to the ED to the with complaints of vomiting and diarrhea. Complaining of upper abdominal pain radiating to her back. GI and general surgery were consulted. Upper quadrant abdominal pain Possible cholecystitis -Continue Zosyn 4.5 g every 6 hours. -Appreciate general surgery and GI input. EGD is a scheduled for tomorrow -Lipase level 87. -General surgery will re-evaluate for possible cholecystectomy. -Continue sucralfate 1 g p.o. before meals at bedtime. Continue Protonix Hypokalemia Hypomagnesemia -Electrolytes replaced. Will check BMP and magnesium level in the morning. Full code. Ambulation.
[2018-05-08] MEDS: Pantoprazole Inj 40 MG Vial IV.PUSH SCH (15:38)
--- NOTE | 2018-05-08 16:01 | P.PNGI ---
Subjective Interval history: Pt is resting in bed, endorses decreased PO intake due to the pain, she endorses upper abd pain. No vomiting <Jayson West - Last Filed: 05/08/18 15:58> Physical Exam Vital signs: Vital Signs 05/07/18 16:00 05/07/18 19:45 05/07/18 20:00 Temperature 97.7 F 98.6 F Pulse Rate 60 63 Respiratory Rate 18 18 Blood Pressure 133/63 145/86 H Pulse Oximetry 96 18 L 05/07/18 22:55 05/08/18 00:00 05/08/18 02:56 Temperature 98.6 F Pulse Rate 63 Respiratory Rate 17 16 17 Blood Pressure 138/73 Pulse Oximetry 96 05/08/18 06:19 05/08/18 08:00 05/08/18 12:00 Temperature 97.9 F 97.8 F Pulse Rate 51 L 52 L Respiratory Rate 17 17 17 Blood Pressure 142/82 H 140/86 Pulse Oximetry 97 98 Intake & Output 05/07/18 05/08/18 05/08/18 18:59 06:59 18:59 Intake Total 3804 / 3804 1200 / 1200 1100 / 1100 Balance 3804 / 3804 1200 / 1200 1100 / 1100 Weight 101 kg Intake: IV 2400 / 2400 1200 / 1200 1100 / 1100 NS Inj 1,000 ML @ 100 mls/hr IV 2000 / 2000 1000 / 1000 1000 / 1000 .CONT .Q10H RUFINA Rx#:[id number] Magnesium Sulfate 1 gm/D5W 100 200 / 200 ml Premix 100 ML @ 100 mls/hr IV.SIG Q1H RUFINA Rx#:[id number] Zosyn 4.5 GM Premix 4.5 gm In 200 / 200 200 / 200 100 / 100 100 ml @ 200 mls/hr IV.SIG Q6H RUFINA Rx#:[id number] Oral 1404 / 1404 Other: # Voids 6 Date of Last Bowel Movement 05/04/18 Narrative: GENERAL: Alert, oriented x3, NAD. SKIN: Warm and dry. HEAD: Normocephalic. EYES: No scleral icterus. No injection or drainage. NECK: Supple, trachea midline. No JVD or lymphadenopathy. CARDIOVASCULAR: Regular rate and rhythm without murmurs, gallops, or rubs. RESPIRATORY: Breath sounds equal bilaterally. No accessory muscle use. GASTROINTESTINAL: Abdomen soft, mild tenderness in the epigastric and right upper quadrant, nondistended. MUSCULOSKELETAL: No cyanosis, or edema. <Jayson West - Last Filed: 05/08/18 15:58> Vital signs: Vital Signs 05/08/18 08:00 05/08/18 12:00 05/08/18 16:00 Temperature 97.9 F 97.8 F 97.9 F Pulse Rate 51 L 52 L 54 L Respiratory Rate 17 17 17 Blood Pressure 142/82 H 140/86 131/67 Pulse Oximetry 97 98 96 05/08/18 20:00 05/08/18 20:45 05/09/18 00:00 Temperature 98.5 F 98.7 F Pulse Rate 55 L 56 L Respiratory Rate 19 17 18 Blood Pressure 170/93 H 150/72 H Pulse Oximetry 100 98 05/09/18 04:00 Temperature 98.3 F Pulse Rate 61 Respiratory Rate 18 Blood Pressure 129/60 Pulse Oximetry 96 Intake & Output 05/08/18 05/09/18 05/09/18 18:59 06:59 18:59 Intake Total 2364 / 2364 1100 / 1100 Balance 2364 / 2364 1100 / 1100 Intake: IV 1200 / 1200 1100 / 1100 NS Inj 1,000 ML @ 100 mls/hr IV 1000 / 1000 1000 / 1000 .CONT .Q10H RUFINA Rx#:[id number] Zosyn 4.5 GM Premix 4.5 gm In 200 / 200 100 / 100 100 ml @ 200 mls/hr IV.SIG Q6H RUFINA Rx#:[id number] Oral 1164 / 1164 Other: # Voids 6 Date of Last Bowel Movement 05/04/18 <Sari Leo - Last Filed: 05/09/18 07:00> Results - Labs CBC & Chem 7: 05/07/18 04:06 05/07/18 04:06 Microbiology 05/05/18 16:25 Blood - Peripheral Aerobic Blood Culture - Preliminary No growth in 3 days 05/05/18 16:25 Blood - Peripheral Anaerobic Blood Culture - Preliminary No growth in 3 days 05/05/18 16:20 Blood - Peripheral Aerobic Blood Culture - Preliminary No growth in 3 days 05/05/18 16:20 Blood - Peripheral Anaerobic Blood Culture - Preliminary No growth in 3 days <Jayson West - Last Filed: 05/08/18 15:58> - Labs CBC & Chem 7: 05/07/18 04:06 05/07/18 04:06 Microbiology 05/05/18 16:25 Blood - Peripheral Aerobic Blood Culture - Preliminary No growth in 3 days 05/05/18 16:25 Blood - Peripheral Anaerobic Blood Culture - Preliminary No growth in 3 days 05/05/18 16:20 Blood - Peripheral Aerobic Blood Culture - Preliminary No growth in 3 days 05/05/18 16:20 Blood - Peripheral Anaerobic Blood Culture - Preliminary No growth in 3 days <Sari Leo - Last Filed: 05/09/18 07:00> Assessment and Plan (1) Abdominal pain Status: Acute Code(s): R10.9 - Unspecified abdominal pain (2) Nausea & vomiting Status: Acute Code(s): R11.2 - Nausea with vomiting, unspecified - Plan - Abdominal pain with nausea and vomiting- still with nausea and mild upper abd pain aggravated by PO intake. LFts wnl, lipase wnl - ?cholecystitis- HIDA scan performed on 05/05/2018 revealed the following- Gallbladder: Activity is first seen in the gallbladder at 20 minutes. Post-CCK: After CCK administration, there is no significant emptying of the gallbladder common bile duct kinetics are normal and there is no evidence of biliary obstruction. No symptomatic response after cholecystokinin infusion. Biliary-Enteric Reflux: None observed. No findings of an acute cholecystitis. Gallbladder is identified at 20 minutes. No significant gallbladder response to IV CCK administration. In the appropriate clinical setting, findings could represent a chronic cholecystitis. GS on the case - Leucocytosis- Resolved- Secondary to above, on Zosyn Plan: - REYNA - EGD tomorrow - NPO mn - Cont Reglan - supportive care - GS on the case - Pt seen and examined by Dr. Leo and myself and this note is written on her behalf. <Jayson West - Last Filed: 05/08/18 15:58> (1) Abdominal pain Status: Acute Code(s): R10.9 - Unspecified abdominal pain (2) Nausea & vomiting Status: Acute Code(s): R11.2 - Nausea with vomiting, unspecified - Attending Attestation seen, examined agree with above <Sari Leo - Last Filed: 05/09/18 07:00>
[2018-05-09] MEDS ORDERED: Chlorhexidine Gluconate 2% 1 Pack (2 Cloths) TOPICAL ONE (02:09)
[2018-05-09] MEDS: Piperacil/Tazo 4.5 GM Premix 4.5 GM/100 ML BAG IV.SIG SCH ×2 (05:53→10:15)
[2018-05-09 07:03] LABS: Potassium 3.9 meq/L (3.5-5.1)
[2018-05-09 07:07] LABS: Carbon Dioxide 27.7 meq/L (21.0-32.0)
[2018-05-09] MEDS: Sucralfate 1 GM Tablet PO SCH ×7 (10:15→21:32)
[2018-05-09] MEDS: Sod Chloride 0.9% Inj 1,000 ML IV.CONT SCH ×2 (10:16→15:12)
--- NOTE | 2018-05-09 11:18 | P.PN ---
Subjective Interval history: Follow-up for upper abdominal pain, nausea and vomiting. Patient is currently doing well. No fever, chills. Abdominal pain is well controlled. She is scheduled for EGD this morning. Physical Exam Vital signs: Vital Signs 05/08/18 12:00 05/08/18 16:00 05/08/18 20:00 Temperature 97.8 F 97.9 F 98.5 F Pulse Rate 52 L 54 L 55 L Respiratory Rate 17 17 19 Blood Pressure 140/86 131/67 170/93 H Pulse Oximetry 98 96 100 05/08/18 20:45 05/09/18 00:00 05/09/18 04:00 Temperature 98.7 F 98.3 F Pulse Rate 56 L 61 Respiratory Rate 17 18 18 Blood Pressure 150/72 H 129/60 Pulse Oximetry 98 96 05/09/18 08:00 Temperature 98.1 F Pulse Rate 62 Respiratory Rate 14 Blood Pressure 144/69 H Pulse Oximetry 96 Intake & Output 05/08/18 05/09/18 05/09/18 18:59 06:59 18:59 Intake Total 2364 / 2364 1200 / 1200 1000 / 1000 Balance 2364 / 2364 1200 / 1200 1000 / 1000 Intake: IV 1200 / 1200 1200 / 1200 1000 / 1000 NS Inj 1,000 ML @ 100 mls/hr IV 1000 / 1000 1000 / 1000 1000 / 1000 .CONT .Q10H RUFINA Rx#:[id number] Zosyn 4.5 GM Premix 4.5 gm In 200 / 200 200 / 200 100 ml @ 200 mls/hr IV.SIG Q6H RUFINA Rx#:[id number] Oral 1164 / 1164 Other: # Voids 6 Date of Last Bowel Movement 05/04/18 Narrative: GENERAL: Alert, oriented x3, NAD. SKIN: Warm and dry. HEAD: Normocephalic. EYES: No scleral icterus. No injection or drainage. NECK: Supple, trachea midline. No JVD or lymphadenopathy. CARDIOVASCULAR: Regular rate and rhythm without murmurs, gallops, or rubs. RESPIRATORY: Breath sounds equal bilaterally. No accessory muscle use. GASTROINTESTINAL: Abdomen soft, mild tenderness in the epigastric and right upper quadrant, nondistended. MUSCULOSKELETAL: No cyanosis, or edema. Results - Labs CBC & Chem 7: 05/07/18 04:06 05/09/18 04:47 Laboratory Results - last 24 hr 05/09/18 04:47 Sodium 143 Potassium 3.9 Chloride 109 H Carbon Dioxide 27.7 Anion Gap 6 BUN 6 L Creatinine 0.86 Estimated GFR 73 L Random Glucose 93 Calcium 8.0 L Magnesium 2.0 Microbiology 05/05/18 16:25 Blood - Peripheral Aerobic Blood Culture - Preliminary No growth in 4 days 05/05/18 16:25 Blood - Peripheral Anaerobic Blood Culture - Preliminary No growth in 4 days 05/05/18 16:20 Blood - Peripheral Aerobic Blood Culture - Preliminary No growth in 4 days 05/05/18 16:20 Blood - Peripheral Anaerobic Blood Culture - Preliminary No growth in 4 days Assessment and Plan - Plan 37 y/o female with no medical history presented to the ED to the with complaints of vomiting and diarrhea. Complaining of upper abdominal pain radiating to her back. GI and general surgery were consulted. Upper quadrant abdominal pain Possible cholecystitis -Continue Zosyn 4.5 g every 6 hours. -Appreciate general surgery and GI input. EGD is a scheduled for 05/09/2018 -Lipase level 87. -General surgery will re-evaluate for possible cholecystectomy. -Continue sucralfate 1 g p.o. before meals at bedtime. Continue Protonix Hypokalemia Hypomagnesemia -Electrolytes replaced. K is 3.9 today and Mg 2.0. Full code. Ambulation.
[2018-05-09] MEDS ORDERED: Lidocaine PF 1% Inj 5 ML Syringe OTHER ONE (11:25)
--- NOTE | 2018-05-09 11:40 | GIPROC ---
[facility] [address] [facility]. [facility], [address] EGD PROCEDURE REPORT EXAM DATE: 05/09/2018 PATIENT NAME: Brandie Wolff MR #: [id number] BIRTHDATE: 1980 ATTENDING: Sari Leo MD ORDER #: [id number] BIOMEDICAL EQUIPMENT TECHNICIAN: Wilfredo Diaz and Aster Uriostegui STATUS: inpatient INDICATIONS: The patient is a 37 yr old female here for an EGD due to abdominal pain, nausea, vomiting PROCEDURE PERFORMED: EGD w/ biopsy MEDICATIONS: None and Per Anesthesia. TOPICAL ANESTHETIC: none CONSENT: The patient understands the risks and benefits of the procedure and understands that these risks include, but are not limited to: sedation, allergic reaction, infection, perforation and/or bleeding. Alternative means of evaluation and treatment include, among others: physical exam, x-rays, and/or surgical intervention. The patient elects to proceed with this endoscopic procedure. medical equipment was checked for proper function. Hand hygiene and appropriate measures for infection prevention was taken. After the risks, benefits and alternatives of the procedure were thoroughly explained, Informed consent was verified, confirmed and timeout was successfully executed by the treatment team. The patient was anesthetized with topical anesthesia and the Pentax EG-[id number] endoscope was introduced through the mouth and advanced to the second portion of the duodenum. Retroflexed views revealed a hiatal hernia The gastroscope was then slowly withdrawn and removed. Duodenitis duodenla bulb-biopsy gastritis antrum-biopsy esophagitis distal esophgus-biopsy. Some retained medication and gastric juice-100 cc suctioned. ADVERSE EVENTS: There were no complications. IMPRESSIONS: 1. Duodenitis duodenla bulb-biopsy gastritis antrum-biopsy esophagitis distal esophgus-biopsy 2. Retroflexed views revealed a hiatal hernia RECOMMENDATIONS: 1. Await biopsy results. Biopsy results will not be ready for 7-10 days. If you don't hear from us in two weeks, call our office for biopsy results. 2. Anti-reflux regimen 3. Continue PPI 4. Avoid NSAIDS 5. Carafate liquid PATIENT CONDITION: stable DISPOSITION: Inpatient REPEAT EXAM: Return 3 months EGD Sari Leo MD eSigned: Sari Leo MD 05/09/2018 11:40 AM cc: PATIENT NAME: Brandie Wolff MR#: [id number]
--- NOTE | 2018-05-09 14:01 | P.PNGS ---
Subjective Interval history: She underwent EGD this am showing significant distal esophagitis and gastritis. She is comfortable right now. Physical Exam Vital signs: Vital Signs 05/08/18 16:00 05/08/18 20:00 05/08/18 20:45 Temperature 97.9 F 98.5 F Pulse Rate 54 L 55 L Respiratory Rate 17 19 17 Blood Pressure 131/67 170/93 H Pulse Oximetry 96 100 05/09/18 00:00 05/09/18 04:00 05/09/18 08:00 Temperature 98.7 F 98.3 F 98.1 F Pulse Rate 56 L 61 62 Respiratory Rate 18 18 14 Blood Pressure 150/72 H 129/60 144/69 H Pulse Oximetry 98 96 96 05/09/18 11:48 05/09/18 12:00 Temperature 97 F L 97.5 F L Pulse Rate 63 58 L Respiratory Rate 16 Blood Pressure 177/79 H 145/70 H Pulse Oximetry 97 98 Intake & Output 05/08/18 05/09/18 05/09/18 18:59 06:59 18:59 Intake Total 2364 / 2364 1200 / 1200 1300 / 1300 Balance 2364 / 2364 1200 / 1200 1300 / 1300 Intake: IV 1200 / 1200 1200 / 1200 1000 / 1000 NS Inj 1,000 ML @ 100 mls/hr IV 1000 / 1000 1000 / 1000 1000 / 1000 .CONT .Q10H RUFINA Rx#:[id number] Zosyn 4.5 GM Premix 4.5 gm In 200 / 200 200 / 200 100 ml @ 200 mls/hr IV.SIG Q6H RUFINA Rx#:[id number] Oral 1164 / 1164 Anesthesia Amount 300 / 300 Other: # Voids 6 Date of Last Bowel Movement 05/04/18 Narrative: NAD Abd: soft Results - Labs 05/07/18 04:06 05/09/18 04:47 Laboratory Results - last 24 hr 05/09/18 04:47 Sodium 143 Potassium 3.9 Chloride 109 H Carbon Dioxide 27.7 Anion Gap 6 BUN 6 L Creatinine 0.86 Estimated GFR 73 L Random Glucose 93 Calcium 8.0 L Magnesium 2.0 - Imaging Imaging: ITS Impressions Bile Acid Absorption NM 05/05/18 00:00 CONCLUSION: 1. No findings of an acute cholecystitis. Gallbladder is identified at 20 minutes. 2. No significant gallbladder response to IV CCK administration. In the appropriate clinical setting, findings could represent a chronic cholecystitis. Chest X-Ray 05/05/18 00:00 CONCLUSION: No acute cardiopulmonary abnormality is identified. Assessment and Plan - Assessment (1) Biliary dyskinesia Code(s): K82.8 - Other specified diseases of gallbladder Status: Acute (2) Abdominal pain Code(s): R10.9 - Unspecified abdominal pain Status: Acute (3) Nausea & vomiting Code(s): R11.2 - Nausea with vomiting, unspecified Status: Acute - Plan Symptoms are likely related to severe esophagitis, gastritis, duodenitis. Recommend attempt at treatment with PPI and carafate, reflux precautions regarding diet, etc. F/u with me in two weeks.
[2018-05-09] MEDS: Pantoprazole Inj 40 MG Vial IV.PUSH SCH (15:12)
[2018-05-09] MEDS: Morphine Sulfate Inj 2 MG/ML Vial IV.PUSH PRN ×2 (15:13→18:00)
--- NOTE | 2018-05-10 00:08 | P.DS ---
Date of admission: 05/04/18 22:50 Primary care physician: No Primary Care Physician Attending physician on discharge: Keyon Koch Anticipated date of discharge: 05/09/18 Brief History from admission: 37 y/o female with no medical history presented to the ED to the with complaints of vomiting and diarrhea today. Patient states she has been vomiting since this morning with one episode of diarrhea. Upon examination she is coughing and vomiting after. She states she has been having fevers and chills at home, unknown temperature. Denies any chest pain, or sob. DS: Medications - Discharge Medications Prescriptions: pantoprazole 40 mg PO BID #60 tab sucralfate 1 gm PO ACHS #90 tab DS: Summary Hospital Course: 37 y/o female with no medical history presented to the ED to the with complaints of vomiting and diarrhea. Complaining of upper abdominal pain radiating to her back. GI and general surgery were consulted. Upper quadrant abdominal pain Possible cholecystitis -Continue Zosyn 4.5 g every 6 hours. -Appreciate general surgery and GI input. EGD 05/09/2018 shows esophagitis. -Lipase level 87. -General surgery recommended two week follow up in the outpatient setting. -Continue sucralfate 1 g p.o. before meals at bedtime. Continue Protonix Hypokalemia Hypomagnesemia -Electrolytes replaced. K is 3.9 today and Mg 2.0. Full code. Ambulation. Patient tolerated diet well. Patient is discharged home with two week follow up with Dr. Alcocer (General surgery). - Time Spent with Patient Total time spent providing and/or coordinating discharge services: Less than 30 minutes Exam Vital signs: Vital Signs 05/09/18 04:00 05/09/18 08:00 05/09/18 11:48 Temperature 98.3 F 98.1 F 97 F L Pulse Rate 61 62 63 Respiratory Rate 18 14 Blood Pressure 129/60 144/69 H 177/79 H Pulse Oximetry 96 96 97 05/09/18 12:00 05/09/18 16:00 Temperature 97.5 F L 99.0 F Pulse Rate 58 L 56 L Respiratory Rate 16 16 Blood Pressure 145/70 H 139/77 Pulse Oximetry 98 99 Intake & Output 05/09/18 05/09/18 05/10/18 06:59 18:59 06:59 Intake Total 1200 / 1200 5000 / 5000 Balance 1200 / 1200 5000 / 5000 Intake: IV 1200 / 1200 2500 / 2500 NS Inj 1,000 ML @ 100 mls/hr IV 1000 / 1000 2000 / 2000 .CONT .Q10H RUFINA Rx#:[id number] LR 1000 mL Inj 1,000 ML @ 30 400 / 400 mls/hr IV.SIG .Q24H RUFINA Rx#: [id number] Zosyn 4.5 GM Premix 4.5 gm In 200 / 200 100 / 100 100 ml @ 200 mls/hr IV.SIG Q6H RUFINA Rx#:[id number] Oral 2200 / 2200 Anesthesia Amount 300 / 300 Other: # Voids 5 Date of Last Bowel Movement 05/04/18 Results Procedures completed during hospitalization: IMPRESSIONS: 1. Duodenitis duodenla bulb-biopsy gastritis antrum-biopsy esophagitis distal esophgus-biopsy 2. Retroflexed views revealed a hiatal hernia RECOMMENDATIONS: 1. Await biopsy results. Biopsy results will not be ready for 7-10 days. If you don't hear from us in two weeks, call our office for biopsy results. 2. Anti-reflux regimen 3. Continue PPI 4. Avoid NSAIDS 5. Carafate liquid PATIENT CONDITION: stable DISPOSITION: Inpatient REPEAT EXAM: Return 3 months EGD Pending studies at discharge: Pending at discharge 05/09/18 14:49 Surgical [PTH] Routine Labs on day of discharge: Labs from last 24 hours 05/09/18 04:47 Sodium 143 Potassium 3.9 Chloride 109 H Carbon Dioxide 27.7 Anion Gap 6 BUN 6 L Creatinine 0.86 Estimated GFR 73 L Random Glucose 93 Calcium 8.0 L Magnesium 2.0 Preliminary micro results at discharge 05/05/18 16:25 Aerobic Blood Culture - Preliminary Blood - Peripheral No growth in 4 days Anaerobic Blood Culture - Preliminary No growth in 4 days 05/05/18 16:20 Aerobic Blood Culture - Preliminary Blood - Peripheral No growth in 4 days Anaerobic Blood Culture - Preliminary No growth in 4 days - Impressions ITS Impressions Bile Acid Absorption NM 05/05/18 00:00 CONCLUSION: 1. No findings of an acute cholecystitis. Gallbladder is identified at 20 minutes. 2. No significant gallbladder response to IV CCK administration. In the appropriate clinical setting, findings could represent a chronic cholecystitis. Chest X-Ray 05/05/18 00:00 CONCLUSION: No acute cardiopulmonary abnormality is identified. Discharge Plan - Discharge Disposition Patient Disposition: 01 Discharge Home - Discharge Condition Condition: Good - Discharge Order Discharge Orders: Discharge Order (Routine); Ordered 05/09/18 Ordered By: Keyon Koch - Discharge Details Anticipated Discharge Date: 05/09/18 Discharge Comment: Discharge tonight after dinner IF patient wants to go. OR discharge in the AM. - Physicians Team Primary Care Provider: Primary Care Pat Lua Attending Provider: Keyon Koch Other Providers: Howard Torres MD ; Guille Alcocer MD - Rxs /Orders / Referrals /Forms Prescriptions: New pantoprazole 40 mg Tablet,Delayed Release (Dr/Ec) 40 mg PO BID Qty: 60 RF: 3 sucralfate 1 gram Tablet 1 gm PO ACHS Qty: 90 RF: 0 No Action No Known Home Medications Referrals: Guille Alcocer MD [GENERAL SURGERY] - See Instructions (Follow up in 2 weeks. ) Primary Care Pat Lua [Primary Care Provider] - See Instructions
== END 2018-05-09 23:53 | disposition home or self-care (01) ==
LOC: NEDDLT 22:40 → INTOOBSV 22:50 → N07 22:50
PROVIDERS: ADMIT Hospitalist; ATTEND Hospitalist
PROC: PANENDO (2018-05-09 11:20)
CPT/HCPCS: 71010; 71045; 74176; 76705; 78226; 80048; 80053; 80076; 81001; 83690; 83735; 84100; 85025; 85027; 87040; 88305; 88312; 90761; 90765; 90772; 90775; 90782; 96361; 96365; 96366; 96367; 96368; 96372; 96375; 96376; 99285; A9513; A9537; C1097; C9113; G0378; J0744; J2270; J2405; J2543; J2550; J2704; J2765; J2805; J3475; J3480; J7030; J7120; Q9963